=== PATIENT | female | born 1975 | race Caucasian/White ===

== ENCOUNTER → 2018-03-07 | Day surgery (SDC) | payer OTHER ==
[~2018-03-07] MED LIST: ULTRACET PO; ZOLOFT25 MG PO
== END | disposition home or self-care (01) ==
LOC: ADM 02-28 15:15 → AMB-ENDOS 05:55
DX: Z85.038 Personal history of other malignant neoplasm of large intestine (principal)

== ENCOUNTER 2019-04-24 05:15 | Day surgery (SDC) | payer OTHER | END 2019-04-24 12:56 | disposition home or self-care (01) | LOC: AMB-ENDOS 05:15 | DX: C18.8 Malignant neoplasm of overlapping sites of colon (principal) ==